=== PATIENT | male | born 1980 ===

== ENCOUNTER 2018-03-01 16:56 | Emergency (ER) | payer BC ==
[2018-03-01 17:26] VITALS: PULSE 78; RESP 18; TEMP 97.9; O2SAT 99
[2018-03-01] MEDS ORDERED: Sodium Chloride 0.9% 1,000 ML IV STA (18:18)
[2018-03-01] MEDS ORDERED: Lidocaine 5% Patch TD STA (18:26)
--- NOTE | 2018-03-01 18:32 | ED PDOC ---
HPI: Male Pain Time Seen by Provider: 03/01/18 17:49 Chief Complaint (Nursing): Male Genitourinary Chief Complaint (Provider): Left Flank Pain History Per: Patient History/Exam Limitations: no limitations Onset/Duration Of Symptoms: Days (x2) Current Symptoms Are (Timing): Still Present Additional Complaint(s): 37 y/o male with a pmhx of kidney stones, morbid obesity, borderline diabetes, and bipolar disorder, who presents for evaluation of left flank pain x2 days. Patient reports pain has been worsening since onset. He states it radiates anteriorly and down groin to testicular area. He reports its similar to previous pain secondary to kidney stones. He also reports that he noticed blood in his urine yesterday and this morning, He confirms mild nausea, but no vomiting. Also reports that the day before yesterday he had changed attire for his truck and his pain may be due to that. He states pain is worse with movement of trunk and deep breaths. He reports taking a Percocet leftover from previous prescription and mothers Tramadol with no relief. Denies bowl incontinence, retention. PMD: Dr. Alva Past Medical History Reviewed: Historical Data, Nursing Documentation, Vital Signs Vital Signs: Last Vital Signs Temp 97.9 F 03/01/18 17:19 Pulse 78 03/01/18 17:19 Resp 18 03/01/18 17:19 BP 126/88 03/01/18 17:19 Pulse Ox 99 03/01/18 17:19 - Medical History PMH: Bipolar Disorder, Kidney Stones Other PMH: Morbid obesity, borderline diabetes - Surgical History Other surgeries: Ureteral stent - Family History Family History: States: Hypertension - Social History Current smoker - smoking cessation education provided: Yes Alcohol: None Drugs: Denies - Home Medications Home Medications: Ambulatory Orders Medication Instructions Recorded Dicyclomine [Bentyl] 20 mg PO BID #20 tab 07/17/16 Cyclobenzaprine [Cyclobenzaprine 10 mg PO Q8H PRN #15 tab 03/01/18 HCl] Ibuprofen [Motrin Tab] 600 mg PO Q8 PRN #60 tab 03/01/18 Lidocaine 5% [Lidoderm] 1 ea TD DAILY PRN #30 patch 03/01/18 - Allergies Allergies/Adverse Reactions: Allergies Allergy/AdvReac Type Severity Reaction Status Date / Time No Known Allergies Allergy Verified 07/16/16 19:52 Review of Systems ROS Statement: Except As Marked, All Systems Reviewed And Found Negative Gastrointestinal: Positive for: Nausea, Abdominal Pain. Negative for: Vomiting Genitourinary Male: Negative for: Incontinence Physical Exam - Reviewed Nursing Documentation Reviewed: Yes Vital Signs Reviewed: Yes - Physical Exam Appears: Positive for: Well, No Acute Distress Head Exam: Positive for: ATRAUMATIC, NORMOCEPHALIC Skin: Positive for: Warm, Dry Eye Exam: Positive for: EOMI, PERRL ENT: Negative for: Pharyngeal Erythema, Tonsillar Exudate Neck: Positive for: Painless ROM, Supple Cardiovascular/Chest: Positive for: Regular Rate, Rhythm, Chest Non Tender. Negative for: Murmur Respiratory: Positive for: Normal Breath Sounds. Negative for: Wheezing Gastrointestinal/Abdominal: Positive for: Soft, Tenderness (LUQ tenderness to palpation). Negative for: Mass, Distended, Guarding, Rebound Back: Positive for: L CVA Tenderness (to palpation) Extremity: Positive for: Normal ROM. Negative for: Deformity Lymphatic: Negative for: Adenopathy Neurologic/Psych: Positive for: Alert. Negative for: Motor/Sensory Deficits - Laboratory Results Result Diagrams: 03/01/18 18:28 03/01/18 18:28 - ECG O2 Sat by Pulse Oximetry: 99 (RA) Pulse Ox Interpretation: Normal Medical Decision Making Medical Decision Makin:16 Initial Impression: Left flank pain. Differential diagnoses include, but are not limited to muscle strain, renal colic, pyelonephritis, and colitis. Plan: --CT abdomen and pelvis w/o contrast --CMP --CBC --Flexeril 10mg PO --Lidocaine 5% --1LNS --Toradol 30mg IVP --Tylenol 975mg PO --Zofran 4mg PO --Urine culture --IV insertion --Urinalysis --Reevaluation EXAM: CT Abdomen and Pelvis Without Intravenous Contrast EXAM DATE/TIME: Examination ordered 03/01/2018 6:16 PM. Image number total count reviewed [id number] CLINICAL HISTORY: The patient is 37 years old and is male; Pain; Abdominal pain; Flank; Left; Additional info: Left flank pain Facility exam id and description: [id number] abd pelvis w/o po or iv cont. Sent prior CT a/p from 11-04-2016 TECHNIQUE: Axial computed tomography images of the abdomen and pelvis without intravenous contrast. All CT scans at this facility use one or more dose reduction techniques, viz.: automated exposure control; ma/kV adjustment per patient size (including targeted exams where dose is matched to indication; i.e. head); or iterative reconstruction technique. COMPARISON: CT - ABD PELVIS W/O PO OR IV CONT 2016-11-04 09:44 FINDINGS: LUNG BASES: Unremarkable. ABDOMEN: LIVER: Unremarkable. GALLBLADDER AND BILE DUCTS: Unremarkable. No calcified stones. No ductal dilation. PANCREAS: Unremarkable. No ductal dilation. SPLEEN: Unremarkable. No splenomegaly. ADRENALS: Unremarkable. No mass. KIDNEYS AND URETERS: Nonobstructing left renal calculi. STOMACH AND BOWEL: Unremarkable. No obstruction. No mucosal thickening. PELVIS: APPENDIX: No findings to suggest acute appendicitis. BLADDER: Unremarkable. No stones. REPRODUCTIVE: Unremarkable as visualized. ABDOMEN and PELVIS: INTRAPERITONEAL SPACE: Unremarkable. No free air. No significant fluid collection. BONES/JOINTS: No acute fracture. SOFT TISSUES: Unremarkable. VASCULATURE: Unremarkable. No abdominal aortic aneurysm. LYMPH NODES: Unremarkable. No enlarged lymph nodes. IMPRESSION: Nonobstructing left renal calculi. Dictated and Authenticated by: Luana Bush MD Labs demonstrate mild leukocytosis. Urine and bloodwork unremarkable. DW pt findings and possibility of passed stone, but CT currently does not demonstrate obstructing stone or cause of pain. Encouraged fluids and f/u urology. Will also give rx for possible muscle strain and advised avoid strenuous activity or heavy lifting. Scribe Attestation: Documented by Vicente Gordon, acting as a scribe for Elisa Miranda MD. Provider Scribe Attestation: All medical record entries made by the Scribe were at my direction and personally dictated by me. I have reviewed the chart and agree that the record accurately reflects my personal performance of the history, physical exam, medical decision making, and the department course for this patient. I have also personally directed, reviewed, and agree with the discharge instructions and disposition. Disposition - Clinical Impression Clinical Impression: Renal colic on left side, Back strain - Disposition Referrals: Jaziel Alva MD [Family Provider] - 03/02/18 (CALL TOMORROW FOR FOLLOW UP APPOINTMENT WITHIN 48 HOURS. YOU MAY ALSO NEED A REFERRAL TO SEE THE UROLOGIST.) Raman Luna MD [Medical Doctor] - (PLEASE FOLLOW UP WITH UROLOGIST IN 3- 4 DAYS) Disposition: Routine/Home Disposition Time: 22:00 Condition: STABLE Prescriptions: Cyclobenzaprine [Cyclobenzaprine HCl] 10 mg PO Q8H PRN #15 tab PRN Reason: Muscle Spasm Ibuprofen [Motrin Tab] 600 mg PO Q8 PRN #60 tab PRN Reason: Pain, Moderate (4-7) Lidocaine 5% [Lidoderm] 1 ea TD DAILY PRN #30 patch PRN Reason: PAIN Instructions: Muscle Strain (DC), Renal Colic Forms: [employer] (Albanian), [facility] ED School/Work Excuse
[2018-03-01 18:36] LABS: BASO # 0.1 K/uL (0.0-0.2); BASO % 0.6 % (0.0-2.0); EOS # 0.1 K/uL (0.0-0.7); EOS % 0.6 % (0.0-4.0); HEMOGLOBIN 12.7 g/dL (12.0-18.0); LYMPH # 2.8 K/uL (1.0-4.3); LYMPH % 21.6 % (20.0-40.0); MEAN CELL VOLUME 71.2 fl (80.0-94.0); MEAN CORPUSCULAR HEMOGLOBIN 22.8 pg (27.0-31.0); MEAN PLATELET VOLUME 8.4 fl (7.2-11.7); MONO # 0.9 K/uL (0.0-0.8); MONO % 7.2 % (0.0-10.0); RBC 5.57 Mil/uL (4.40-5.90); RED CELL DISTRIBUTION WIDTH 15.8 % (11.5-14.5); WHITE BLOOD COUNT 12.8 K/uL (4.8-10.8)
[2018-03-01 18:46] LABS: ALB/GLOB RATIO 1.2 (1.0-2.1); ALT/SGPT 56 U/L (21-72); AST/SGOT 31 U/L (17-59); BLOOD UREA NITROGEN 10 mg/dl (9-20); CALCIUM 8.8 mg/dL (8.4-10.2); GFR AFRICAN-AMERICAN > 60; GFR NON-AFRICAN AMERICAN > 60
[2018-03-01] MEDS ORDERED: Lidocaine 5% Patch TD ONE (18:50)
[2018-03-01 18:53] LABS: URINE BACTERIA RARE (<OCC); URINE BILIRUBIN NEGATIVE (NEGATIVE); URINE BLOOD NEGATIVE (NEGATIVE); URINE CLARITY SLIGHTY-CLOUDY (Clear); URINE COLOR YELLOW (YELLOW); URINE GLUCOSE (UA) NEG (Normal); URINE LEUKOCYTE ESTERASE NEG Leu/uL (Negative); URINE PROTEIN NEGATIVE (NEGATIVE); URINE UROBILINOGEN 0.2-1.0 mg/dL (0.2-1.0)
[2018-03-01 22:39] VITALS: BP 126/80
--- NOTE | 2018-03-02 10:18 | CT ---
PROCEDURE: CT Abdomen and Pelvis without intravenous contrast HISTORY: LEFT flank pain COMPARISON: Noncontrast abdomen and pelvis CT examination 11/04/2016. TECHNIQUE: Helical CT of the abdomen and pelvis was performed without oral or intravenous contrast as per referring physician request. Contrast dose: None Radiation dose: Total exam DLP = 1107.70 mGy-cm. This CT exam was performed using one or more of the following dose reduction techniques: Automated exposure control, adjustment of the mA and/or kV according to patient size, and/or use of iterative reconstruction technique. FINDINGS: LOWER THORAX: Unremarkable. LIVER: Unremarkable. No gross lesion or ductal dilatation. GALLBLADDER AND BILE DUCTS: Unremarkable. PANCREAS: Unremarkable. No gross lesion or ductal dilatation. SPLEEN: Unremarkable. ADRENALS: Unremarkable. No mass. KIDNEYS AND URETERS: No obstructive uropathy is appreciated bilaterally. Punctate intrarenal calculi measure 0 2-3 mm scattered at the upper and lower pole left kidney number at total of 2 at the left with a solitary punctate intrarenal calculus identified at the mid pole right kidney. VASCULATURE: Unremarkable. No aortic aneurysm. BOWEL: Unremarkable appearing. No obstruction. No pericolic or perienteric reactive change. Poor evaluation of the wall due to lack of oral and intravenous contrast. APPENDIX: Unremarkable. Normal appendix. PERITONEUM: Unremarkable. No free fluid. No free air. LYMPH NODES: Unremarkable. No enlarged lymph nodes. BLADDER: Unremarkable. REPRODUCTIVE: Unremarkable. BONES: No acute fracture. OTHER FINDINGS: None. IMPRESSION: Radiodense urolithiasis identified within both kidneys too limited extent. No obstructive uropathy bilaterally nevertheless. No definitive acute abdominal or pelvic findings in this unenhanced CT examination. Concordant preliminary report from [facility], 03/01/2018 7:30 p.m..
== END 2018-03-01 22:39 | disposition home or self-care (01) ==
LOC: H.ER 16:56
DX: N23 Unspecified renal colic (principal); S39.012A Strain of muscle, fascia and tendon of lower back, initial encounter; E66.01 Morbid (severe) obesity due to excess calories; F17.200 Nicotine dependence, unspecified, uncomplicated; Z86.59 Personal history of other mental and behavioral disorders; Z87.442 Personal history of urinary calculi; R73.03 Prediabetes
CPT/HCPCS: 74176; 80053; 81003; 85025; 87086; 96361; 96374; 99283; J1885; J7030

== ENCOUNTER 2018-08-01 04:08 | Emergency (ER) | payer BC ==
[2018-08-01 04:49] VITALS: BP 149/98; PULSE 95; RESP 16; TEMP 98.8; O2SAT 100
[2018-08-01 05:54] LABS: BASO % 0.5 % (0.0-2.0); EOS # 0.1 K/uL (0.0-0.7); EOS % 1.3 % (0.0-4.0); HEMOGLOBIN 12.7 g/dL (12.0-18.0); LYMPH # 2.8 K/uL (1.0-4.3); MEAN CELL VOLUME 70.7 fl (80.0-94.0); MEAN CORPUSCULAR HEMOGLOBIN 23.1 pg (27.0-31.0); MEAN CORPUSCULAR HGB CONC 32.6 g/dL (33.0-37.0); MEAN PLATELET VOLUME 8.2 fl (7.2-11.7); MONO # 0.9 K/uL (0.0-0.8); MONO % 9.6 % (0.0-10.0); NEUT % 56.6 % (50.0-75.0); RBC 5.51 Mil/uL (4.40-5.90); RED CELL DISTRIBUTION WIDTH 15.4 % (11.5-14.5); WHITE BLOOD COUNT 8.9 K/uL (4.8-10.8)
[2018-08-01 06:05] LABS: ALB/GLOB RATIO 1.1 (1.0-2.1); ALBUMIN 3.9 g/dL (3.5-5.0); ALT/SGPT 36 U/L (21-72); AST/SGOT 24 U/L (17-59); BLOOD UREA NITROGEN 14 mg/dl (9-20); CALCIUM 8.5 mg/dL (8.4-10.2); GFR NON-AFRICAN AMERICAN > 60
[2018-08-01 07:00] LABS: BARBITURATES, UR NEGATIVE (NEGATIVE); BENZODIAZEPINES, UR NEGATIVE (NEGATIVE); OPIATES, UR NEGATIVE (NEGATIVE); PHENCYCLIDINE, UR NEGATIVE (NEGATIVE)
--- NOTE | 2018-08-01 07:09 | ED PDOC ---
HPI: Chest Pain Time Seen by Provider: 08/01/18 04:44 Chief Complaint (Nursing): Chest Pain Chief Complaint (Provider): Chest Pain History Per: Patient History/Exam Limitations: no limitations Onset/Duration Of Symptoms: Days (x3) Current Symptoms Are (Timing): Still Present Additional Complaint(s): 38 year old male arrives to ED with a complaint of chest pain that became worse at 0200 earlier this morning. He denies any nausea, vomiting, or diaphoresis. He additionally reports some numbness in bilateral arms. PCP: none provided Past Medical History Reviewed: Historical Data, Nursing Documentation, Vital Signs Vital Signs: Last Vital Signs Temp 98.8 F 08/01/18 04:47 Pulse 95 H 08/01/18 04:47 Resp 16 08/01/18 04:47 BP 149/98 H 08/01/18 04:47 Pulse Ox 100 08/01/18 04:47 - Medical History PMH: Bipolar Disorder, Kidney Stones - Surgical History Surgical History: No Surg Hx - Family History Family History: States: Hypertension - Social History Current smoker - smoking cessation education provided: Yes (vaporizer) - Home Medications Home Medications: Ambulatory Orders Medication Instructions Recorded Dicyclomine [Bentyl] 20 mg PO BID #20 tab 07/17/16 Cyclobenzaprine [Cyclobenzaprine 10 mg PO Q8H PRN #15 tab 03/01/18 HCl] Ibuprofen [Motrin Tab] 600 mg PO Q8 PRN #60 tab 03/01/18 Lidocaine 5% [Lidoderm] 1 ea TD DAILY PRN #30 patch 03/01/18 - Allergies Allergies/Adverse Reactions: Allergies Allergy/AdvReac Type Severity Reaction Status Date / Time No Known Allergies Allergy Verified 07/16/16 19:52 Review of Systems ROS Statement: Except As Marked, All Systems Reviewed And Found Negative Constitutional: Negative for: Sweats Cardiovascular: Positive for: Chest Pain Gastrointestinal: Negative for: Nausea, Vomiting Neurological: Positive for: Numbness (bilateral arms) Physical Exam - Reviewed Nursing Documentation Reviewed: Yes Vital Signs Reviewed: Yes - Physical Exam Appears: Positive for: Well, Non-toxic, No Acute Distress Head Exam: Positive for: ATRAUMATIC, NORMAL INSPECTION, NORMOCEPHALIC Skin: Positive for: Normal Color Eye Exam: Positive for: Normal appearance, EOMI, PERRL ENT: Positive for: Normal ENT Inspection Neck: Positive for: Normal Cardiovascular/Chest: Positive for: Regular Rate, Rhythm, Chest Non Tender Respiratory: Positive for: Normal Breath Sounds. Negative for: Wheezing, Respiratory Distress Gastrointestinal/Abdominal: Positive for: Normal Exam, Soft. Negative for: Tenderness Extremity: Positive for: Normal ROM (upper/lower) Neurologic/Psych: Positive for: Alert, Oriented. Negative for: Motor/Sensory Deficits - Laboratory Results Result Diagrams: 08/01/18 05:42 08/01/18 05:40 - ECG O2 Sat by Pulse Oximetry: 100 (RA) Pulse Ox Interpretation: Normal Medical Decision Making Medical Decision Making: Initial Impression: 38 year old male with chest pain. Initial Plan: * EKG * Labs * CXR Time: 627 --Labs reviewed: no significant clinical abnormality. CXR: no active disease. Upon provider reevaluation, patient is medically stable and requires no further treatment in the ED at this time. Patient will be discharged home. Counseling was provided and all questions were answered regarding diagnosis. There is agreement to discharge plan. Return if symptoms persist or worsen. Clinical Impression: Atypical chest pain ---- Scribe Attestation: Documented by Elvi John, acting as a scribe for Berny Parra MD. Provider Scribe Attestation: All medical record entries made by the Scribe were at my direction and personally dictated by me. I have reviewed the chart and agree that the record accurately reflects my personal performance of the history, physical exam, medical decision making, and the department course for this patient. I have also personally directed, reviewed, and agree with the discharge instructions and disposition. Disposition - Clinical Impression Clinical Impression: Atypical chest pain - Patient ED Disposition Is Patient to be Admitted: No Counseled Patient/Family Regarding: Studies Performed, Diagnosis - Disposition Disposition: Routine/Home Disposition Time: 06:28 Condition: STABLE Instructions: Chest Pain Forms: [facility] (Estonian)
--- NOTE | 2018-08-01 08:57 | CARD ---
APPROVED REPORT Date of service: 08/01/2018 EKG Measurement Heart [id number] <Conclusion> Normal sinus rhythm Normal ECG
--- NOTE | 2018-08-01 12:38 | RAD ---
Date of service: 08/01/2018 HISTORY: chest pain COMPARISON: No prior. FINDINGS: LUNGS: No active pulmonary disease. PLEURA: No significant pleural effusion identified, no pneumothorax apparent. CARDIOVASCULAR: No aortic atherosclerotic calcification present. Normal cardiac size. No pulmonary vascular congestion. OSSEOUS STRUCTURES: No significant abnormalities. VISUALIZED UPPER ABDOMEN: Normal. OTHER FINDINGS: None. IMPRESSION: No active disease.
== END 2018-08-01 07:13 | disposition home or self-care (01) ==
LOC: H.ER 04:08
DX: R07.89 Other chest pain (principal); F17.200 Nicotine dependence, unspecified, uncomplicated; Z87.442 Personal history of urinary calculi; Z86.59 Personal history of other mental and behavioral disorders
CPT/HCPCS: 71045; 80053; 84484; 85025; 93005; 99283; G0480

== ENCOUNTER 2018-12-07 12:34 | Emergency (ER) | payer BC ==
--- NOTE | 2018-12-07 13:38 | ED PDOC ---
HPI: Male Pain Time Seen by Provider: 12/07/18 13:08 Chief Complaint (Nursing): Male Genitourinary Chief Complaint (Provider): left back pain History Per: Patient History/Exam Limitations: no limitations Onset/Duration Of Symptoms: Hrs Current Symptoms Are (Timing): Still Present Quality Of Discomfort: "Pain" Associated Symptoms: Back Pain, Urinary Symptoms Additional History Per: Patient Additional Complaint(s): 38yo male with history of kidney stones, comes to ER reporting left back pain, radiating to his ribs as well as hematuria. he states the pain has been worsening and is unrelieved with Tylenol. Also reports decreased urine production, and episodes of vomiting. Otherwise, no fever, chills or other complaints. PMD: Dr. Estrada Past Medical History Reviewed: Historical Data, Nursing Documentation, Vital Signs Vital Signs: Last Vital Signs Temp 98.3 F 12/07/18 12:36 Pulse 118 H 12/07/18 12:36 Resp 18 12/07/18 12:36 BP 146/94 H 12/07/18 12:36 Pulse Ox 99 12/07/18 12:36 - Medical History PMH: Bipolar Disorder, Kidney Stones - Surgical History Other surgeries: renal stent - Family History Family History: States: Hypertension - Social History Current smoker - smoking cessation education provided: No Alcohol: None Drugs: Denies - Home Medications Home Medications: Ambulatory Orders Medication Instructions Recorded Dicyclomine [Bentyl] 20 mg PO BID #20 tab 07/17/16 Cyclobenzaprine [Cyclobenzaprine 10 mg PO Q8H PRN #15 tab 03/01/18 HCl] Ibuprofen [Motrin Tab] 600 mg PO Q8 PRN #60 tab 03/01/18 Lidocaine 5% [Lidoderm] 1 ea TD DAILY PRN #30 patch 03/01/18 - Allergies Allergies/Adverse Reactions: Allergies Allergy/AdvReac Type Severity Reaction Status Date / Time No Known Allergies Allergy Verified 07/16/16 19:52 Review of Systems ROS Statement: Except As Marked, All Systems Reviewed And Found Negative Constitutional: Negative for: Fever, Chills Gastrointestinal: Positive for: Nausea, Vomiting Genitourinary Male: Positive for: Hematuria Musculoskeletal: Positive for: Back Pain Physical Exam - Reviewed Nursing Documentation Reviewed: Yes Vital Signs Reviewed: Yes - Physical Exam Appears: Positive for: Non-toxic Head Exam: Positive for: ATRAUMATIC, NORMAL INSPECTION, NORMOCEPHALIC Skin: Positive for: Normal Color Eye Exam: Positive for: EOMI, PERRL ENT: Positive for: Other (moist mucosa) Neck: Positive for: Supple Cardiovascular/Chest: Positive for: Regular Rate, Rhythm Respiratory: Positive for: Normal Breath Sounds Pulses-Radial (L): 2+ Pulses-Radial (R): 2+ Gastrointestinal/Abdominal: Positive for: Soft. Negative for: Distended, Guarding, Rebound Back: Positive for: L CVA Tenderness. Negative for: R CVA Tenderness, Vertebral Tenderness, Muscle Spasm Extremity: Positive for: Normal ROM. Negative for: Pedal Edema, Deformity Neurological/Psych: Positive for: Alert, Oriented (x 3) - Laboratory Results Result Diagrams: 12/07/18 13:43 12/07/18 13:43 - ECG O2 Sat by Pulse Oximetry: 99 (RA) Pulse Ox Interpretation: Normal - Progress Re-evaluation Time: 17:30 Condition: Re-examined, Improved Medical Decision Making Medical Decision Making: Impression: Hematuria, left flank pain Differential: UTI, kidney stone Plan: -- labs -- UA -- CT abdomen/pelvis w/o contrast 1638 CT Abdomen/Pelvis FINDINGS: LOWER THORAX: Unremarkable. LIVER: Unremarkable. No gross lesion or ductal dilatation. GALLBLADDER AND BILE DUCTS: Unremarkable. PANCREAS: Unremarkable. No gross lesion or ductal dilatation. SPLEEN: Unremarkable. ADRENALS: Unremarkable. No mass. KIDNEYS AND URETERS: A 6.8 x 3.9 mm calculus obstructs the distal left ureter at the mid sacral level, causing mild left hydroureteronephrosis in the interval. No definite radiodense urolithiasis right kidney. A 2 mm nonobstructing intrarenal calculus identified at the lower pole left kidney. VASCULATURE: Unremarkable. No aortic aneurysm. No aortic atherosclerotic calcification or mural plaque present. BOWEL: Unremarkable. No obstruction. No gross mural thickening. APPENDIX: Unremarkable. Normal appendix. PERITONEUM: Unremarkable. No free fluid. No free air. LYMPH NODES: Unremarkable. No enlarged lymph nodes. BLADDER: Urinary bladder is decompressed and unremarkable appearing. REPRODUCTIVE: Unremarkable. BONES: No acute fracture. OTHER FINDINGS: None. IMPRESSION: A 6.8 x 3.9 mm calculus obstructs the distal left ureter at the mid sacral level causing mild left hydroureteronephrosis and limited added left perinephric reaction. Contracted urinary bladder. Nonobstructing punctate intrarenal calculus lower pole left kidney. No additional radiodense urolithiasis bilaterally. No right-si ded obstructive uropathy. No definite additional potential acute abdominal or pelvic findings in this unenhanced exam. [address] Irene who recommends follow up with him tomorrow for f urther care if patient pain is controlled. recommends rx for cipro, flomax, and pain conttol. Patient is agreeable with the plan and understands discharge instructions. Patient pain is significantly decreased. Scribe Attestation: Documented by Aixa Camacho acting as a scribe for Gaston Moon MD. Provider Attestation: All medical record entries made by the Scribe were at my direction and personally dictated by me. I have reviewed the chart and agree that the record accurately reflects my personal performance of the history, physical exam, medical decision making, and the department course for this patient. I have also personally directed, reviewed, and agree with the discharge instructions and disposition. Disposition - Clinical Impression Clinical Impression: Renal colic on left side, Flank pain - Patient ED Disposition Is Patient to be Admitted: No Doctor Will See Patient In The: Office Counseled Patient/Family Regarding: Studies Performed, Diagnosis, Need For Followup - Disposition Referrals: Teofilo Irene MD [Medical Doctor] - Disposition: Routine/Home Disposition Time: 17:30 Condition: IMPROVED Additional Instructions: ASIA VILLAGOMEZ, thank you for letting us take care of you today. Your provider was Gaston Moon MD and you were treated for BACK 0PAIN, VOMITING. The emergency medical care you received today was directed at your acute symptoms. If you were prescribed any medication, please fill it and take as directed. It may take several days for your symptoms to resolve. Return to the Emergency Department if your symptoms worsen, do not improve, or if you have any other problems. Please contact your doctor or call one of the physicians/clinics you have been referred to that are listed on the Patient Visit Information form that is included in your discharge packet. Bring any paperwork you were given at discharge with you along with any medications you are taking to your follow up visit. Our treatment cannot replace ongoing medical care by a primary care provider outside of the emergency department. Thank you for allowing the [facility] team to be part of your care today. If you had an X-Ray or CT scan: A Radiologist will review the ED reading if any change in treatment is needed we will contact you. If you had a blood, urine, or wound culture: It will take several days for the results, if any change in treatment is needed we will contact you. If you had an STI test: It will take 48 hours for the results. Please call after 1 week if you have not heard back. Instructions: Renal Colic Forms: [facility] (Iranian)
[2018-12-07] MEDS ORDERED: Sodium Chloride 0.9% 1,000 ML IV STA (13:43)
[2018-12-07 13:48] LABS: BASO % 0.4 % (0.0-2.0); EOS # 0.2 K/uL (0.0-0.7); EOS % 2.5 % (0.0-4.0); LYMPH # 1.9 K/uL (1.0-4.3); LYMPH % 22.8 % (20.0-40.0); MEAN CELL VOLUME 70.3 fl (80.0-94.0); MEAN CORPUSCULAR HEMOGLOBIN 22.2 pg (27.0-31.0); MEAN CORPUSCULAR HGB CONC 31.6 g/dL (33.0-37.0); MEAN PLATELET VOLUME 8.4 fl (7.2-11.7); MONO # 0.6 K/uL (0.0-0.8); MONO % 7.7 % (0.0-10.0); NEUT # 5.6 K/uL (1.8-7.0); NEUT % 66.6 % (50.0-75.0); RBC 5.87 Mil/uL (4.40-5.90); RED CELL DISTRIBUTION WIDTH 16.2 % (11.5-14.5); WHITE BLOOD COUNT 8.4 K/uL (4.8-10.8)
[2018-12-07 13:57] LABS: BLOOD UREA NITROGEN 15 mg/dl (9-20); CALCIUM 9.4 mg/dL (8.4-10.2); GFR NON-AFRICAN AMERICAN > 60
[2018-12-07 14:24] LABS: URINE BILIRUBIN NEGATIVE (NEGATIVE); URINE BLOOD LARGE (NEGATIVE); URINE GLUCOSE (UA) NEG (NEGATIVE); URINE LEUKOCYTE ESTERASE NEG Leu/uL (Negative); URINE PROTEIN 100 mg/dL (NEGATIVE); URINE UROBILINOGEN 0.2-1.0 mg/dL (0.2-1.0)
[2018-12-07 14:25] LABS: BARBITURATES, UR NEGATIVE (NEGATIVE); BENZODIAZEPINES, UR NEGATIVE (NEGATIVE); OPIATES, UR NEGATIVE (NEGATIVE); PHENCYCLIDINE, UR NEGATIVE (NEGATIVE); URINE CLARITY Turbid (Clear); URINE COLOR AM (YELLOW)
[2018-12-07] MEDS ORDERED: Morphine 4 MG/ML VIAL ONE (15:20)
[2018-12-07] MEDS ORDERED: Morphine 4 MG/ML VIAL IVP ONE (15:30)
--- NOTE | 2018-12-07 16:11 | CT ---
Date of service: 12/07/2018 PROCEDURE: CT Abdomen and Pelvis without intravenous contrast HISTORY: left flank pain COMPARISON: None. TECHNIQUE: Helical CT of the abdomen and pelvis was performed without oral or intravenous contrast as per referring physician request. Coronal and sagittal reformats were generated. Radiation dose: Total exam DLP = 1425.65 mGy-cm. This CT exam was performed using one or more of the following dose reduction techniques: Automated exposure control, adjustment of the mA and/or kV according to patient size, and/or use of iterative reconstruction technique. FINDINGS: LOWER THORAX: Unremarkable. LIVER: Unremarkable. No gross lesion or ductal dilatation. GALLBLADDER AND BILE DUCTS: Unremarkable. PANCREAS: Unremarkable. No gross lesion or ductal dilatation. SPLEEN: Unremarkable. ADRENALS: Unremarkable. No mass. KIDNEYS AND URETERS: A 6.8 x 3.9 mm calculus obstructs the distal left ureter at the mid sacral level, causing mild left hydroureteronephrosis in the interval. No definite radiodense urolithiasis right kidney. A 2 mm nonobstructing intrarenal calculus identified at the lower pole left kidney. VASCULATURE: Unremarkable. No aortic aneurysm. No aortic atherosclerotic calcification or mural plaque present. BOWEL: Unremarkable. No obstruction. No gross mural thickening. APPENDIX: Unremarkable. Normal appendix. PERITONEUM: Unremarkable. No free fluid. No free air. LYMPH NODES: Unremarkable. No enlarged lymph nodes. BLADDER: Urinary bladder is decompressed and unremarkable appearing. REPRODUCTIVE: Unremarkable. BONES: No acute fracture. OTHER FINDINGS: None. IMPRESSION: A 6.8 x 3.9 mm calculus obstructs the distal left ureter at the mid sacral level causing mild left hydroureteronephrosis and limited added left perinephric reaction. Contracted urinary bladder. Nonobstructing punctate intrarenal calculus lower pole left kidney. No additional radiodense urolithiasis bilaterally. No right-sided obstructive uropathy. No definite additional potential acute abdominal or pelvic findings in this unenhanced exam.
[2018-12-07] MEDS ORDERED: Oxycodone/Acetaminophen 5/325 mg Tab PO ONE (17:10)
[2018-12-07] MEDS ORDERED: Oxycodone/Acetaminophen 5/325 mg Tab ONE (17:14)
[2018-12-07 18:11] VITALS: BP 132/74; PULSE 86; RESP 19; TEMP 98.6; O2SAT 98
== END 2018-12-07 18:00 | disposition home or self-care (01) ==
LOC: H.ER 12:34
DX: N23 Unspecified renal colic (principal); M54.9 Dorsalgia, unspecified; Z86.59 Personal history of other mental and behavioral disorders; Z87.442 Personal history of urinary calculi
CPT/HCPCS: 74176; 80048; 81003; 85025; 87086; 96374; 96375; 99284; G0480; J1885; J2270; J7030

== ENCOUNTER 2018-12-09 10:11 | Day surgery (SDC) | payer BC ==
[2018-12-09 10:35] VITALS: BMI 40.0
[2018-12-09 10:48] VITALS: O2SAT 97
[2018-12-09] MEDS ORDERED: Lactated Ringer's 1,000 ML IV ONE (11:18)
[2018-12-09 11:53] LABS: INR 1.1
[2018-12-09 11:55] LABS: PARTIAL THROMBOPLASTIN TIME 38.2 Seconds (25.6-37.1)
[2018-12-09] MEDS ORDERED: Propofol 10 mg/ml Inj (20 ML) ONE (12:16)
[2018-12-09] MEDS ORDERED: Liquid Adhesive TOP ONE (12:20)
[2018-12-09] MEDS ORDERED: Iohexol 300 100 ML IJ ONE (12:20)
[2018-12-09] MEDS ORDERED: cefTRIAXone (Rocephin) 1 gm Inj ONE (12:20)
[2018-12-09] MEDS ORDERED: Midazolam 2 MG/2 ML VIAL ONE (13:07)
[2018-12-09] MEDS: HYDROmorphone 0.5 mg/0.5 ml ISec IVP PRN ×2 (13:50→14:05)
[2018-12-09] MEDS ORDERED: Lactated Ringer's 1,000 ML IV SCH (14:00)
[2018-12-09 14:53] VITALS: RESP 18
[2018-12-09 15:21] VITALS: BP 143/90; PULSE 101; TEMP 97.4
--- NOTE | 2018-12-10 01:41 | OP ---
PROCEDURE DATE: 12/09/2018 PREOPERATIVE DIAGNOSES: 1. Acute left renal colic. 2. Left ureteral calculus. POSTOPERATIVE DIAGNOSES: 1. Acute left renal colic. 2. Left ureteral calculus. PROCEDURES PERFORMED: Cystoscopy, left ureteroscopy, stone basketing, and double J-stent placement under general anesthesia. SURGEON: Teofilo Irene MD ANESTHESIA: General anesthesia. DESCRIPTION OF PROCEDURE: The patient was placed on the operating room table in a dorsal lithotomy position. The area of the groin was draped and prepped. At this time, using a short ureteroscope, I entered into the bladder atraumatically, identified the left ureteral orifice and over a floppy-tip guidewire, I advanced the ureteroscope to the level of the obstructing stone. At this point, I left the wire and then used that as a safety. I then went back again, deployed a double-helical basket, engaged the stone, I fractured it, and then removed it out in several pieces. I did a second pass, look. After all the pieces were out, there was no residual up to the full length of the short ureteroscope going into the ureter on the left side. At this time under fluoroscopy, with that existing guidewire in place, I inserted a 6-Maltese multi-link double J-stent. The stone was sent for specimen analysis. The patient was taken from the operating room in good condition. Teofilo Irene MD
--- NOTE | 2018-12-10 09:14 | CARD ---
APPROVED REPORT Date of service: 12/09/2018 EKG Measurement Heart [id number] <Conclusion> Normal sinus rhythm Normal ECG
== END 2018-12-09 15:29 | disposition home or self-care (01) ==
LOC: H.OPSURG 10:11
PROVIDERS: ATTEND Urology
DX: N20.1 Calculus of ureter (principal); N23 Unspecified renal colic
CPT/HCPCS: 36415; 52332; 52352; 82355; 85610; 85730; 88300; 93005; C1769; C2617; J0696; J1170; J2001; J2250; J2405; J2704; J3010; J7120; Q9967

== ENCOUNTER 2018-12-21 08:06 | Day surgery (SDC) | payer BC ==
[2018-12-17 09:47] VITALS: BMI 39.3
[2018-12-21] MEDS ORDERED: Lactated Ringer's 1,000 ML IV ONE (09:00)
[2018-12-21] MEDS ORDERED: Midazolam 2 MG/2 ML VIAL ONE (09:56)
[2018-12-21] MEDS ORDERED: Ketamine 50 mg/ml Inj (10 ml) ONE (09:56)
[2018-12-21] MEDS ORDERED: Propofol 10 mg/ml Inj (20 ML) ONE (09:56)
[2018-12-21] MEDS ORDERED: Lidocaine 2% Jelly (Uro-Jet) TOP ONE (10:10)
[2018-12-21] MEDS ORDERED: Lidocaine 2% Jelly (Uro-Jet) ONE (10:17)
[2018-12-21] MEDS ORDERED: HYDROmorphone 0.5 mg/0.5 ml ISec ONE (10:32)
[2018-12-21] MEDS ORDERED: HYDROmorphone 0.5 mg/0.5 ml ISec IVP PRN (10:34)
[2018-12-21] MEDS ORDERED: Lactated Ringer's 1,000 ML IV SCH (10:45)
[2018-12-21 11:42] VITALS: O2SAT 96
[2018-12-21 11:57] VITALS: RESP 18
[2018-12-21 12:25] VITALS: BP 129/84; PULSE 84; TEMP 97.7
--- NOTE | 2019-01-04 21:40 | OP ---
PROCEDURE DATE: 12/21/2018 PREOPERATIVE DIAGNOSES: Post cystourethroscopy, stone basketing. PROCEDURE PERFORMED: Cystoscopy with removal of double J-stent under IV sedation. SURGEON: Teofilo Irene MD DESCRIPTION OF PROCEDURE: The patient was placed on the operating room table in a dorsal lithotomy position. The area of the groin was draped and prepped in a sterile manner. Using a #21 cystoscope, entering into the bladder atraumatically identified the existing J stent. With a grasper, I grasped the tail and removed it, both ends were intact. At that point, all instrumentation was removed. The patient was taken from the operating room in good condition. Teofilo Irene MD
== END 2018-12-21 12:25 | disposition home or self-care (01) ==
LOC: H.OPSURG 08:06
PROVIDERS: ATTEND Urology
DX: N23 Unspecified renal colic (principal); I10 Essential (primary) hypertension
CPT/HCPCS: 52332; 88300; 88304; J1170; J2001; J2250; J3010; J7120